=== PATIENT | female | born 1955 | race Caucasian/White ===

== ENCOUNTER → 2022-04-26 | Outpatient (CLI) | payer MEDICARE, OTHER ==
[~2022-04-26] MED LIST: ASPIRIN81 M1 PO; CIPROFLOXACIN 55 M1 OPH; EFFEXOR XR150 M1 PO; EFFEXOR75 MG PO; FISH OIL PO; K-DUR 20MEQ20 MEQ PO; LOPRESSOR25 MG PO; METOPROLOL SUCC50 M1 PO; NEXIUM I.V.40 MG PO; NEXIUM40 MG PO; NORVASC10 MG PO; SYNTHROID0.088 MG PO; VICODIN 500 MG-1 TAB PO
== END | disposition home or self-care (01) ==
LOC: US 01:02
PROVIDERS: ATTEND Nurse Practitioner
DX: K76.0 Fatty (change of) liver, not elsewhere classified (principal); Z90.49 Acquired absence of other specified parts of digestive tract